=== PATIENT | male | born 1975 | race Caucasian/White ===

== ENCOUNTER 2016-11-10 20:26 | Emergency (ER) | payer OTHER ==
[2016-11-10 21:06] LABS: BASOPHILS 0.3 % (0-2); EOSINOPHILS 2.6 % (0-7); HEMOGLOBIN 15.1 g/dL (13.5-17.5); IMMATURE GRANULOCYTES 0.7 % (0-5); LYMPHOCYTES 49.2 % (15-50); MCH 31.8 pg (26.0-34.0); MCHC 35.1 g/dL (31.0-37.0); MCV 90.5 fL (80.0-100.0); MEAN PLATELET VOLUME 9.3 fL (7.4-10.4); MONOCYTES 4.3 % (2-11); NEUTROPHILS 42.9 % (40-80); PLATELET COUNT 223 10x3/uL (130-400); RBC 4.75 10x6/uL (4.20-6.10); RDW 12.6 % (11.5-14.5); WBC 8.6 10x3/uL (4.8-10.8)
[2016-11-10 21:57] LABS: ALBUMIN 3.9 g/dL (3.4-5.0); ALKALINE PHOSPHATASE 51 U/L (46-116); ALT (SGPT) 33 U/L (10-68); CALC OSMOLALITY 282 mosm/kg (275-300); CALCIUM 8.9 mg/dL (8.5-10.1); CARBON DIOXIDE 25.1 mmol/L (21.0-32.0); CHLORIDE - SERUM 104 mmol/L (98-107); CREATININE - SERUM 0.9 mg/dL (0.6-1.3); GLUCOSE 115 mg/dL (74-106); POTASSIUM - SERUM 3.6 mmol/L (3.5-5.1); PROTEIN - SERUM 7.3 g/dL (6.4-8.2); SODIUM 142 mmol/L (136-145); UREA NITROGEN 10 mg/dL (7-18); VALPROIC ACID (DEPAKOTE) 21.2 ug/mL (50.0-100.0); eGFR NON AFRICAN AMERICAN > 90 mL/min (90-120)
== END 2016-11-10 23:06 | disposition home or self-care (01) ==
LOC: D.ER 20:26
PROVIDERS: Emergency Medicine
DX: R56.9 Unspecified convulsions (principal)